=== PATIENT | female | born 1960 | race Caucasian/White ===

== ENCOUNTER 2020-04-04 11:40 | Emergency (ER) | payer SELFPAY ==
[~2020-04-04] VITALS: Ht 157.5 cm; Wt 54.4 kg
[2020-04-04] MEDS ORDERED: HYDROCODONE/APAP 5-325MG TABLET PO ONE (12:00)
[2020-04-04] MEDS ORDERED: HYDROCODONE/APAP 5-325MG TABLET ONE (12:27)
--- NOTE | 2020-04-04 12:32 | NUR ---
Patient discharged to home in stable condition. Written and verbal after care instructions given. Patient verbalizes understanding of instructions. Stressed follow up or return to ER for worsening s/s.
== END 2020-04-04 12:32 | disposition home or self-care (01) ==
LOC: ER 11:40
DX: S52.571A Other intraarticular fracture of lower end of right radius, initial encounter for closed fracture (principal); S52.614A Nondisplaced fracture of right ulna styloid process, initial encounter for closed fracture; W01.0XXA Fall on same level from slipping, tripping and stumbling without subsequent striking against object, initial encounter; Y92.89 Other specified places as the place of occurrence of the external cause; E78.00 Pure hypercholesterolemia, unspecified; N32.81 Overactive bladder
CPT/HCPCS: 73110; A4663